=== PATIENT | female | born 1945 | race Caucasian/White ===

== ENCOUNTER 2021-03-29 15:43 | Emergency (ER) | payer OTHER ==
[~2021-03-29] VITALS: Ht 160 cm; Wt 79.0 kg
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
--- NOTE | 2021-03-29 16:46 | Diagnostic Imaging Report ---
CLINICAL INDICATION: Patient with left arm pain. EXAM: X-ray of the left forearm, three views. COMPARISON: None. FINDINGS AND IMPRESSION: 1: There is a transverse fracture involving the distal diaphysis of the left ulna with roughly one-fourth shaft width of dorsal and radial directed displacement of the distal fracture fragment. 2: There is mild positive ulnar variance. 3: There is no other fracture seen on this exam. 4: There are degenerative spurs involving the elbow region. Dictated by: Dictated on workstation # [id number]
[2021-03-29] MEDS ORDERED: ACHD5005 PO (17:13)
[2021-03-29] MEDS ORDERED: HYDROcodone/APAP 5 MG/325 MG (LORTAB) TAB PO ONE (17:15)
[2021-03-29 17:27] VITALS: BP 126/74
== END 2021-03-29 17:27 | disposition home or self-care (01) ==
LOC: ER 15:47
DX: S52.692A Other fracture of lower end of left ulna, initial encounter for closed fracture (principal); W01.198A Fall on same level from slipping, tripping and stumbling with subsequent striking against other object, initial encounter
CPT/HCPCS: 29125; 73090